=== PATIENT | female | born 1960 | race Caucasian/White ===

== ENCOUNTER 2018-07-25 11:01 | Inpatient (IN) | payer OTHER ==
--- NOTE | 2018-07-25 11:35 | C.PDOC ---
History Of Present Illness 58 y/o female pt with PMHx of breast CA referred to the ER by PMD for worsening dyspnea for x2 weeks. Dyspnea is worse on exertion. Pt currently does not have any complaints at this time. Pt denies chest pain, SOB, fever, chills and dizziness. Time Seen by Provider: 07/25/18 11:18 Chief Complaint (Nursing): Shortness Of Breath History Per: Patient History/Exam Limitations: no limitations Onset/Duration Of Symptoms: Days (x2 weeks) Exacerbating Factor(s): Exertion Past Medical History Reviewed: Historical Data, Nursing Documentation, Vital Signs Vital Signs: Last Vital Signs Temp 98.0 F 07/25/18 11:07 Pulse 88 07/25/18 11:07 Resp 16 07/25/18 11:07 BP 127/81 07/25/18 11:07 Pulse Ox 100 07/25/18 11:07 - Medical History PMH: Hypothyroidism Family History: States: No Known Family Hx - Social History Hx Alcohol Use: No Hx Substance Use: No - Immunization History Hx Tetanus Toxoid Vaccination: No Hx Influenza Vaccination: No Hx Pneumococcal Vaccination: No Review Of Systems Except As Marked, All Systems Reviewed And Found Negative. Constitutional: Negative for: Fever, Chills Cardiovascular: Negative for: Chest Pain Respiratory: Negative for: Shortness of Breath Neurological: Negative for: Dizziness Physical Exam - Physical Exam Appears: Well, Non-toxic, No Acute Distress Skin: Normal Color, Warm, Dry Head: Normacephalic Eye(s): bilateral: Normal Inspection, EOMI Nose: Normal Oral Mucosa: Moist Throat: Normal Neck: Normal ROM, Supple Chest: Symmetrical, No Deformity Cardiovascular: Rhythm Regular Respiratory: Normal Breath Sounds, No Rales, No Rhonchi, No Wheezing Gastrointestinal/Abdominal: Soft, No Tenderness Back: No CVA Tenderness Extremity: Normal ROM (x4) Neurological/Psych: Oriented x3, Normal Speech, Normal Cognition ED Course And Treatment - Laboratory Results Result Diagrams: 07/27/18 07:03 07/27/18 07:03 ECG: Interpreted By Me, Viewed By Me ECG Rhythm: Atrial Fibrillation Rate From EC O2 Sat by Pulse Oximetry: 100 (RA) Pulse Ox Interpretation: Normal Medical Decision Making Medical Decision Making: ro chf, pe, pna - labs imaigng pendign Plans: -- EKG -- chem labs -- blood work -- CXR -- UA ekg shows afib. noted anemia. pt states h/o of anemia. no active bleeidng. pe study neg. lasix dosed. pmd sukhwinder specificallyr equests to start eliquis. Disposition - Disposition Disposition: HOSPITALIZED Disposition Time: 16:00 Condition: STABLE - Clinical Impression Clinical Impression: CHF (congestive heart failure), Atrial fibrillation - Scribe Statement The provider has reviewed the documentation as recorded by the Chyna Garcia Do Provider Attestation: All medical record entries made by the Scribe were at my direction and personally dictated by me. I have reviewed the chart and agree that the record a ccurately reflects my personal performance of the history, physical exam, medical decision making, and the department course for this patient. I have also personally directed, reviewed, and agree with the discharge instructions and disposition. Decision To Admit - Pt Status Changed To: Hospital Disposition Of: Inpatient - Admit Certification Admit to Inpatient:: After my assessment, the patient will require hospitalization for at least two midnights. This is because of the severity of symptoms shown, intensity of services needed, and/or the medical risk in this patient being treated as an outpatient. - InPatient: Physician Admission Certification: I certify that this patient requires 2 or more midnights of care for the following reason:: new onset afib chf. - . Bed Request Type: Telemetry Admitting Physician: Judah Bellamy Patient Diagnosis: CHF (congestive heart failure), Atrial fibrillation
[2018-07-25 11:37] LABS: BASO % 0.7 % (0.0-2.0); EOS % 0.7 % (0.0-4.0); HEMOGLOBIN 8.4 g/dL (11.0-16.0); LYMPH # 4.3 K/uL (1.0-4.3); LYMPH % 82.1 % (20.0-40.0); MEAN CELL VOLUME 66.9 fL (81.0-99.0); MEAN PLATELET VOLUME 9.1 fL (7.2-11.7); MONO # 0.1 K/uL (0.0-0.8); MONO % 1.6 % (0.0-10.0); NEUT # 0.8 K/uL (1.8-7.0); NEUT % 14.9 % (50.0-75.0); NRBC % 0.7 % (0.0-2.0); PLATELET COUNT 183 K/uL (130-400); RBC 4.18 Mil/uL (3.80-5.20); RED CELL DISTRIBUTION WIDTH 24.9 % (11.5-14.5); WHITE BLOOD COUNT 5.2 K/uL (4.8-10.8)
[2018-07-25 11:46] LABS: ALB/GLOB RATIO 1.3 (1.0-2.1); ALBUMIN 4.8 g/dL (3.5-5.0); ALT/SGPT 15 U/L (9-52); AST/SGOT 29 U/L (14-36); BLOOD UREA NITROGEN 13 mg/dL (7-17); CALCIUM 8.9 mg/dl (8.6-10.4); GFR NON-AFRICAN AMERICAN > 60
[2018-07-25 11:57] LABS: B-TYPE NATRIURETIC PEPTIDE 1860 pg/mL (0-900)
[2018-07-25 12:01] LABS: SQUAMOUS EPITHIAL 1 /hpf (0-5); URINE BACTERIA MOD (<OCC); URINE BILIRUBIN NEGATIVE (NEGATIVE); URINE BLOOD 2+ (NEGATIVE); URINE CLARITY Clear (Clear); URINE COLOR Yellow (YELLOW); URINE GLUCOSE (UA) NORMAL (Normal); URINE HYALINE CAST 0-2 /lpf (0-2); URINE LEUKOCYTE ESTERASE NEG Leu/uL (Negative); URINE PROTEIN 1+ mg/dL (NEGATIVE)
[2018-07-25 12:25] LABS: BILIRUBIN,DIRECT 0.8 mg/dL (0.0-0.4)
[2018-07-25 12:49] LABS: INR 1.2; PROTHROMBIN TIME 13.2 SECONDS (9.7-12.2)
[2018-07-25] MEDS ORDERED: Iodixanol 320 MG/ML 100 ML BOTTLE IV ONE (13:34)
[2018-07-25 14:18] LABS: BANDS 2 % (0-2); LYMPHOCYTE 52 % (20-40); MONOCYTE 4 % (0-10); NEUTROPHIL 40 % (50-75); REACTIVE LYMPHOCYTES 2 % (0-0); TOTAL CELLS COUNTED 100
[2018-07-25 14:19] LABS: PLATELET ESTIMATE NORMAL (NORMAL)
[2018-07-25 14:22] LABS: ANISOCYTOSIS MODERATE
[2018-07-25 14:23] LABS: POIKILOCYTOSIS SLIGHT
[2018-07-25 14:24] LABS: HYPOCHROMIC SLIGHT; MICROCYTOSIS MODERATE; OVALOCYTES SLIGHT; POLYCHROMIC SLIGHT
[2018-07-25 14:25] LABS: TEARDROP CELLS SLIGHT
[2018-07-25 14:26] LABS: TARGET CELLS MARKED
--- NOTE | 2018-07-25 15:06 | RAD ---
Date of service: 07/25/2018 HISTORY: chest pain COMPARISON: None available. FINDINGS: LUNGS: Diffuse bilateral infiltrates; rule out pulmonary edema/CHF versus pneumonia PLEURA: No significant pleural effusion identified, no pneumothorax apparent. CARDIOVASCULAR: Mild aortic atherosclerotic calcification present. Cardiomegaly. No pulmonary vascular congestion. OSSEOUS STRUCTURES: No significant abnormalities. VISUALIZED UPPER ABDOMEN: Normal. OTHER FINDINGS: None. IMPRESSION: Diffuse bilateral infiltrates; rule out pulmonary edema/CHF versus pneumonia
--- NOTE | 2018-07-25 15:43 | CT ---
Date of service: 07/25/2018 PROCEDURE: CT Chest with contrast (Pulmonary Angiogram) HISTORY: cp elevated dimer COMPARISON: None available. TECHNIQUE: Axial computed tomography images were obtained of the chest in the pulmonary arterial phase of enhancement. Coronal and sagittal reformatted images were created and reviewed. Intravenous contrast dose: Radiation dose: Total exam DLP = 176.76 mGy-cm. This CT exam was performed using one or more of the following dose reduction techniques: Automated exposure control, adjustment of the mA and/or kV according to patient size, and/or use of iterative reconstruction technique. FINDINGS: PULMONARY ARTERIES: Unremarkable. No pulmonary embolism. Pulmonary trunk measures approximately AORTA: No acute findings. No thoracic aortic aneurysm. Ascending thoracic aorta measures approximate 3.7 cm. Descending thoracic aorta measures approximately 2.3 cm. Mild aortic atherosclerotic calcification or mural plaque present. LUNGS: There are patchy ground-glass opacities seen throughout the upper and lower lobes. There are minor linear scarring changes also seen in the left upper lobe extending to the pleural surface as well as in the left lung base and lingular region.. Minor linear atelectasis or scarring right lung base including middle lobe as well.. Minimal thickening of superior aspect right major fissure PLEURAL SPACES: Unremarkable. No effusion or pneumothorax. HEART: Heart is enlarged. No significant pericardial effusion. LYMPH NODES: No significant mediastinal or hilar adenopathy. Trachea midline and patent with no large central endoluminal lesions. Thickening or small amount of fluid within the superior aspect of the right major fissure. BONES, CHEST WALL: Unremarkable. No fracture or destructive lesion OTHER FINDINGS: The spleen is upper limits of normal in size. IMPRESSION: No evidence of acute central pulmonary embolus. Marked cardiomegaly. Ground-glass opacity seen throughout the upper and lower lobes with areas of linear atelectasis and or scarring left upper lobe, left lung base including the lingular region as well as right lung base and middle lobe.
[2018-07-26] MEDS: Levothyroxine 125 MCG TAB PO SCH (05:39)
--- NOTE | 2018-07-26 15:19 | CP.PCM.HP ---
History of Present Illness - History of Present Illness History of Present Illness: CC: Fatigue HPI: 58 year old female h/o Breast cancer, Anemia c/o fatigue and SOB 1 week. No chest pain, cough, fevre. Deny bleeding. Present on Admission - Present on Admission Any Indicators Present on Admission: Yes History of DVT/PE: No History of Uncontrolled Diabetes: No Urinary Catheter: No Decubitus Ulcer Present: No Review of Systems - Review of Systems Review of Systems: No fever. No cough. No loss weight. No bleeding Past Patient History - Past Medical History & Family History Past Medical History?: Yes - Past Social History Smoking Status: Never Smoked Chewing Tobacco Use: No Cigar Use: No Home Situation {Lives}: With Family Domestic Violence: Negative - CARDIAC Hx Congestive Heart Failure: Yes - PULMONARY Hx Respiratory Disorders: No - HEENT Hx HEENT Problems: No - RENAL Hx Chronic Kidney Disease: No - ENDOCRINE/METABOLIC Hx Hypothyroidism: Yes - HEMATOLOGICAL/ONCOLOGICAL Hx Cancer: Yes (BREAST. 2006) - MUSCULOSKELETAL/RHEUMATOLOGICAL Hx Musculoskeletal Disorders: No Hx Falls: No - PSYCHIATRIC Hx Substance Use: No - SURGICAL HISTORY Hx Mastectomy: Yes (LEFT, 2006) - ANESTHESIA Hx Anesthesia: Yes Hx Anesthesia Reactions: No Hx Malignant Hyperthermia: No Has any member of the family had a problem w/ anesthesia?: No Meds Allergies/Adverse Reactions: Allergies Allergy/AdvReac Type Severity Reaction Status Date / Time No Known Allergies Allergy Unverified 07/25/18 11:10 Physical Exam - Constitutional Appears: No Acute Distress - Head Exam Head Exam: NORMAL INSPECTION - Eye Exam Eye Exam: Normal appearance Pupil Exam: NORMAL ACCOMODATION - ENT Exam ENT Exam: Normal Exam - Neck Exam Neck exam: Positive for: Normal Inspection - Respiratory Exam Respiratory Exam: NORMAL BREATHING PATTERN - Cardiovascular Exam Cardiovascular Exam: Irregular Rhythm - GI/Abdominal Exam GI & Abdominal Exam: Soft - Rectal Exam Rectal Exam: Deferred - Extremities Exam Extremities exam: Positive for: normal inspection - Back Exam Back exam: NORMAL INSPECTION - Neurological Exam Neurological exam: Alert Results - Vital Signs Recent Vital Signs: Last Vital Signs Temp 98.1 F 07/26/18 07:00 Pulse 81 07/26/18 12:07 Resp 20 07/26/18 07:00 BP 109/78 07/26/18 07:00 Pulse Ox 97 07/26/18 07:00 - Labs Result Diagrams: 07/27/18 07:03 07/27/18 07:03 Assessment & Plan (1) Atrial fibrillation Status: Acute (2) Anemia Status: Chronic (3) Cardiomegaly Status: Chronic - Assessment and Plan (Free Text) Assessment: A/P: CT chest, ECHO. Cardiology and Oncology consult ordered. Continue medications - Date & Time Date: 07/26/18 Time: 15:22
[2018-07-27] MEDS: Levothyroxine 125 MCG TAB PO SCH (05:39)
[2018-07-27 07:41] LABS: HEMOGLOBIN 8.5 g/dL (11.0-16.0); MEAN CORPUSCULAR HEMOGLOBIN 19.1 pg (27.0-31.0); MEAN CORPUSCULAR HGB CONC 28.6 g/dL (33.0-37.0); RBC 4.45 Mil/uL (3.80-5.20); RED CELL DISTRIBUTION WIDTH 23.7 % (11.5-14.5); WHITE BLOOD COUNT 5.6 K/uL (4.8-10.8)
[2018-07-27 08:12] LABS: ALB/GLOB RATIO 1.3 (1.0-2.1); ALBUMIN 4.3 g/dL (3.5-5.0); ALT/SGPT 17 U/L (9-52); AST/SGOT 22 U/L (14-36); BLOOD UREA NITROGEN 19 mg/dL (7-17); CALCIUM 8.9 mg/dl (8.6-10.4); GFR NON-AFRICAN AMERICAN > 60
--- NOTE | 2018-07-27 08:17 | CP.PCM.PN ---
Subjective - Date & Time of Evaluation Date of Evaluation: 07/27/18 Time of Evaluation: 07:50 - Subjective Subjective: Pt feels well; no more CP, (+) fatigue, no cough, no SOB, no diarrhea, no N/V Objective - Vital Signs/Intake and Output Vital Signs (last 24 hours): Temp Pulse Resp BP Pulse Ox 97.9 F 73 20 109/76 98 07/27/18 08:09 07/27/18 08:09 07/27/18 08:09 07/27/18 08:09 07/27/18 08:09 Intake and Output: 07/27/18 07/27/18 06:59 18:59 Intake Total 980 Balance 980 - Medications Medications: Current Medications Apixaban (Eliquis) 5 mg PO DAILY [facility] Last Admin: 07/26/18 10:05 Dose: 5 mg Folic Acid (Folic Acid) 1 mg PO DAILY [facility] Last Admin: 07/26/18 10:05 Dose: 1 mg Levothyroxine Sodium (Synthroid) 125 mcg PO DAILY@0630 [facility] Last Admin: 07/27/18 05:39 Dose: 125 mcg - Labs Labs: 07/27/18 07:03 07/27/18 07:03 PT 13.2 SECONDS (9.7-12.2) H 07/25/18 11:28 INR 1.2 07/25/18 11:28 APTT 33 SECONDS (21-34) 07/25/18 11:28 - Constitutional Appears: No Acute Distress - Eye Exam Eye Exam: Normal appearance - ENT Exam ENT Exam: Mucous Membranes Moist - Neck Exam Neck Exam: Full ROM. absent: Lymphadenopathy, Thyromegaly - Respiratory Exam Respiratory Exam: Clear to Ausculation Bilateral. absent: Rales, Rhonchi, Wheezes - Cardiovascular Exam Cardiovascular Exam: REGULAR RHYTHM, +S1, +S2, Murmur. absent: Gallop - GI/Abdominal Exam GI & Abdominal Exam: Soft. absent: Tenderness, Mass - Extremities Exam Extremities Exam: Full ROM, Normal Capillary Refill. absent: Calf Tenderness, Joint Swelling, Pedal Edema Assessment and Plan - Assessment and Plan (Free Text) Assessment: CHF; Anemia ; h/o Breast cancer Await 2-D and von opinion Cont meds/ supportive care
[2018-07-28] MEDS: Levothyroxine 125 MCG TAB PO SCH (05:40)
--- NOTE | 2018-07-28 06:07 | CP.PCM.CON ---
History of Present Illness - History of Present Illness History of Present Illness: 58 y/o female pt with PMHx of breast CA referred to the ER by PMD for worsening dyspnea for x2 weeks. Dyspnea is worse on exertion. Pt currently does not have any complaints at this time. Pt denies chest pain, SOB, fever, chills and d izziness. Chief Complaint (Nursing): Shortness Of Breath History Per: Patient History/Exam Limitations: no limitations Onset/Duration Of Symptoms: Days (x2 weeks) Exacerbating Factor(s): Exertion - Medical History PMH: Hypothyroidism Family History: States: No Known Family Hx - Social History Hx Alcohol Use: No Hx Substance Use: No - Immunization History Hx Tetanus Toxoid Vaccination: No Hx Influenza Vaccination: No Hx Pneumococcal Vaccination: No Review Of Systems Except As Marked, All Systems Reviewed And Found Negative. Constitutional: Negative for: Fever, Chills Cardiovascular: Negative for: Chest Pain Respiratory: Negative for: Shortness of Breath Neurological: Negative for: Dizziness Physical Exam - Physical Exam Appears: Well, Non-toxic, No Acute Distress Skin: Normal Color, Warm, Dry Head: Normacephalic Eye(s): bilateral: Normal Inspection, EOMI Nose: Normal Oral Mucosa: Moist Throat: Normal Neck: Normal ROM, Supple Chest: Symmetrical, No Deformity Cardiovascular: Rhythm Regular Respiratory: Normal Breath Sounds, No Rales, No Rhonchi, No Wheezing Gastrointestinal/Abdominal: Soft, No Tenderness Back: No CVA Tenderness Extremity: Normal ROM (x4) Neurological/Psych: Oriented x3, Normal Speech, Normal Cognition Past Patient History - Past Medical History & Family History Past Medical History?: Yes - Past Social History Smoking Status: Never Smoked Chewing Tobacco Use: No Cigar Use: No Home Situation {Lives}: With Family Domestic Violence: Negative - CARDIAC Hx Congestive Heart Failure: Yes - PULMONARY Hx Respiratory Disorders: No - HEENT Hx HEENT Problems: No - RENAL Hx Chronic Kidney Disease: No - ENDOCRINE/METABOLIC Hx Hypothyroidism: Yes - HEMATOLOGICAL/ONCOLOGICAL Hx Cancer: Yes (BREAST. 2006) - MUSCULOSKELETAL/RHEUMATOLOGICAL Hx Musculoskeletal Disorders: No Hx Falls: No - PSYCHIATRIC Hx Substance Use: No - SURGICAL HISTORY Hx Mastectomy: Yes (LEFT, 2006) - ANESTHESIA Hx Anesthesia: Yes Hx Anesthesia Reactions: No Hx Malignant Hyperthermia: No Has any member of the family had a problem w/ anesthesia?: No Meds Home Medications: Home Medication List Medication Instructions Recorded Confirmed Type Apixaban [Eliquis] 2.5 mg PO BID tab 07/28/18 Rx Folic Acid 1 mg PO DAILY tab 07/28/18 Rx Levothyroxine [Synthroid] 125 mcg PO DAILY@0630 tab 07/28/18 Rx Furosemide [Lasix] 20 mg PO DAILY PRN #30 tablet 07/30/18 Rx Allergies/Adverse Reactions: Allergies Allergy/AdvReac Type Severity Reaction Status Date / Time No Known Allergies Allergy Unverified 07/25/18 11:10 - Medications Medications: Current Medications Apixaban (Eliquis) 5 mg PO DAILY [facility] Last Admin: 07/27/18 09:11 Dose: 5 mg Folic Acid (Folic Acid) 1 mg PO DAILY [facility] Last Admin: 07/27/18 09:11 Dose: 1 mg Levothyroxine Sodium (Synthroid) 125 mcg PO DAILY@0630 [facility] Last Admin: 07/28/18 05:40 Dose: 125 mcg Results - Vital Signs Recent Vital Signs: Last Vital Signs Temp 98.7 F 07/28/18 00:00 Pulse 81 07/28/18 00:00 Resp 20 07/28/18 00:00 BP 106/69 07/28/18 00:00 Pulse Ox 98 07/28/18 00:00 - Labs Result Diagrams: 07/29/18 07:20 07/29/18 07:20 Labs: Laboratory Results - last 24 hr 07/27/18 07/27/18 07:03 07:03 WBC 5.6 RBC 4.45 Hgb 8.5 L Hct 29.8 L MCV 67.0 L MCH 19.1 L MCHC 28.6 L RDW 23.7 H Plt Count 196 MPV 9.0 Differential Comment Sodium 141 Potassium 4.1 Chloride 106 Carbon Dioxide 24 Anion Gap 15 BUN 19 H Creatinine 0.7 Est GFR ( Amer) > 60 Est GFR (Non-Af Amer) > 60 Random Glucose 103 Calcium 8.9 Total Bilirubin 2.3 H AST 22 ALT 17 Alkaline Phosphatase 55 Total Protein 7.8 Albumin 4.3 Globulin 3.5 Albumin/Globulin Ratio 1.3 TSH 3rd Generation 17.30 H Assessment & Plan - Assessment and Plan (Free Text) Assessment: Dyspnea Moderate to severe MR A Fib/Dilated LA Hypothyroidism For stress test in am Liklely needs MVR in the near future
[2018-07-28] MEDS ORDERED: Caffeine Citrated **INJ** 20 MG/ML IV ONE ×2 (07:51→17:07)
--- NOTE | 2018-07-28 08:55 | CP.PCM.PN ---
Subjective - Date & Time of Evaluation Date of Evaluation: 07/28/18 Time of Evaluation: 08:35 - Subjective Subjective: Pt on stress test; no complain of CP, no SOB, no edema, no cough nor fatique Objective - Vital Signs/Intake and Output Vital Signs (last 24 hours): Temp Pulse Resp BP Pulse Ox 98.2 F 78 20 111/80 98 07/28/18 08:00 07/28/18 08:00 07/28/18 08:00 07/28/18 08:00 07/28/18 08:00 Intake and Output: 07/28/18 07/28/18 06:59 18:59 Intake Total 50 Balance 50 - Medications Medications: Current Medications Apixaban (Eliquis) 2.5 mg PO BID [facility] Folic Acid (Folic Acid) 1 mg PO DAILY [facility] Last Admin: 07/27/18 09:11 Dose: 1 mg Levothyroxine Sodium (Synthroid) 125 mcg PO DAILY@0630 [facility] Last Admin: 07/28/18 05:40 Dose: 125 mcg - Labs Labs: 07/27/18 07:03 07/27/18 07:03 PT 13.2 SECONDS (9.7-12.2) H 07/25/18 11:28 INR 1.2 07/25/18 11:28 APTT 33 SECONDS (21-34) 07/25/18 11:28 - Constitutional Appears: No Acute Distress - Eye Exam Eye Exam: Normal appearance - ENT Exam ENT Exam: Mucous Membranes Moist - Neck Exam Neck Exam: Full ROM. absent: Normal Inspection, Thyromegaly - Respiratory Exam Respiratory Exam: Clear to Ausculation Bilateral. absent: Rales, Rhonchi, Wheezes - Cardiovascular Exam Cardiovascular Exam: Irregular Rhythm, +S1, +S2, Murmur. absent: Gallop, JVD - GI/Abdominal Exam GI & Abdominal Exam: Soft. absent: Tenderness - Extremities Exam Extremities Exam: Full ROM, Normal Capillary Refill. absent: Calf Tenderness, Joint Swelling, Pedal Edema Assessment and Plan - Assessment and Plan (Free Text) Assessment: At fib; CHF; Severe MR Cont meds/ supportive care Discharge if clear by Cardio
--- NOTE | 2018-07-28 18:59 | CP.PCM.CON ---
History of Present Illness - History of Present Illness History of Present Illness: 58 yo woman with history of breast cancer, admitted with c/o SPARROW, unable to lie down flat in bed. The patient denies fever, chills, chest pain, palpitations. In the ER, she was found to be in AFib, with diffuse bilateral infiltrates The patient has a history of left sided breast cancer, T2N1, [id number]+, ER and MT negative disease, underwent mastectomy, postop chemotherapy, and chest wall radiation, 2006 in [place]. As per patient she was closely monitored during the chemo with serial 2D echo every 3 months which remained normal. The patient feels better, with improved breathing and is scheduled to have a cardiac cath tomorrow Past Patient History - Past Medical History & Family History Past Medical History?: Yes - Past Social History Smoking Status: Never Smoked Chewing Tobacco Use: No Cigar Use: No Home Situation {Lives}: With Family Domestic Violence: Negative - CARDIAC Hx Congestive Heart Failure: Yes - PULMONARY Hx Respiratory Disorders: No - HEENT Hx HEENT Problems: No - RENAL Hx Chronic Kidney Disease: No - ENDOCRINE/METABOLIC Hx Hypothyroidism: Yes - HEMATOLOGICAL/ONCOLOGICAL Hx Cancer: Yes (BREAST. 2006) - MUSCULOSKELETAL/RHEUMATOLOGICAL Hx Musculoskeletal Disorders: No Hx Falls: No - PSYCHIATRIC Hx Substance Use: No - SURGICAL HISTORY Hx Mastectomy: Yes (LEFT, 2006) - ANESTHESIA Hx Anesthesia: Yes Hx Anesthesia Reactions: No Hx Malignant Hyperthermia: No Has any member of the family had a problem w/ anesthesia?: No Meds Home Medications: Home Medication List Medication Instructions Recorded Confirmed Type Apixaban [Eliquis] 2.5 mg PO BID tab 07/28/18 Rx Folic Acid 1 mg PO DAILY tab 07/28/18 Rx Levothyroxine [Synthroid] 125 mcg PO DAILY@0630 tab 07/28/18 Rx Allergies/Adverse Reactions: Allergies Allergy/AdvReac Type Severity Reaction Status Date / Time No Known Allergies Allergy Unverified 07/25/18 11:10 - Medications Medications: Current Medications Folic Acid (Folic Acid) 1 mg PO DAILY [facility] Last Admin: 07/28/18 10:34 Dose: 1 mg Levothyroxine Sodium (Synthroid) 125 mcg PO DAILY@0630 [facility] Last Admin: 07/28/18 05:40 Dose: 125 mcg Results - Vital Signs Recent Vital Signs: Last Vital Signs Temp 98.1 F 07/28/18 16:00 Pulse 99 H 07/28/18 16:00 Resp 18 07/28/18 16:00 BP 113/76 07/28/18 16:00 Pulse Ox 99 07/28/18 16:00 - Labs Result Diagrams: 07/27/18 07:03 07/27/18 07:03 Labs: Laboratory Results - last 24 hr 07/28/18 07/28/18 08:27 08:27 Retic Count 6.4 H Lactate Dehydrogenase 469 Carcinoembryonic Ag 1.7 Assessment & Plan (1) Breast cancer in female Assessment and Plan: 58 yo woman with diagnosis of Stage II [id number] positive breast cancer, s/p chemo and RT to left chest wall in 2006, currently admitted with SOB, AFib, possibly related to the breast cancer treatments, without any other obvious preexisting risk factors for heart disease, being evaluated by cardiology. The patient has currently no evidence of recurrent breast cancer and remains in remission. The anemia is secondary to her Thalassemia, stable without any change in her Hgb level or underlying hemolysis. Continue PO folic acid for now Status: Acute
[2018-07-29] MEDS ORDERED: Midazolam 2 MG/2 ML VIAL ONE (07:03)
[2018-07-29] MEDS ORDERED: Iohexol 350mg/ml 100 ML ONE (07:25)
[2018-07-29] MEDS: Levothyroxine 125 MCG TAB PO SCH (07:27)
[2018-07-29 07:32] LABS: HEMOGLOBIN 9.9 g/dL (11.0-16.0); MEAN CELL VOLUME 66.5 fL (81.0-99.0); MEAN CORPUSCULAR HEMOGLOBIN 19.9 pg (27.0-31.0); RBC 4.97 Mil/uL (3.80-5.20); RED CELL DISTRIBUTION WIDTH 24.2 % (11.5-14.5)
[2018-07-29 07:37] LABS: BLOOD UREA NITROGEN 18 mg/dL (7-17); CALCIUM 9.5 mg/dl (8.6-10.4); GFR NON-AFRICAN AMERICAN > 60
[2018-07-29 07:45] LABS: INR 1.2; PROTHROMBIN TIME 13.1 SECONDS (9.7-12.2)
--- NOTE | 2018-07-29 08:35 | CP.PCM.PN ---
Subjective - Date & Time of Evaluation Date of Evaluation: 07/29/18 Time of Evaluation: 08:20 - Subjective Subjective: Pt no complain; Was told normal cath No CP, no SOB, no edema, no cough Wnt to go home Objective - Vital Signs/Intake and Output Vital Signs (last 24 hours): Temp Pulse Resp BP Pulse Ox 98.4 F 71 20 109/75 99 07/28/18 23:15 07/29/18 01:00 07/28/18 23:15 07/28/18 23:15 07/28/18 23:15 - Medications Medications: Current Medications Folic Acid (Folic Acid) 1 mg PO DAILY [facility] Last Admin: 07/28/18 10:34 Dose: 1 mg Levothyroxine Sodium (Synthroid) 125 mcg PO DAILY@0630 [facility] Last Admin: 07/29/18 07:27 Dose: Not Given - Labs Labs: 07/29/18 07:20 07/29/18 07:20 PT 13.1 SECONDS (9.7-12.2) H 07/29/18 07:20 INR 1.2 07/29/18 07:20 APTT 33 SECONDS (21-34) 07/25/18 11:28 - Constitutional Appears: No Acute Distress - Eye Exam Eye Exam: Normal appearance - Respiratory Exam Respiratory Exam: Clear to Ausculation Bilateral. absent: Rales, Rhonchi, Wheezes - Cardiovascular Exam Cardiovascular Exam: Irregular Rhythm, +S1, +S2, Murmur. absent: Gallop, JVD - GI/Abdominal Exam GI & Abdominal Exam: Soft. absent: Tenderness, Mass - Extremities Exam Extremities Exam: Full ROM, Normal Capillary Refill. absent: Calf Tenderness, J oint Swelling Assessment and Plan - Assessment and Plan (Free Text) Assessment: CHF; sever MR Hypothyroidism For discharge if clear w/ Cardio cont meds in OPD; F/up 08/01 in clinic
--- NOTE | 2018-07-29 10:38 | CARD ---
APPROVED REPORT Date of service: 07/28/2018 Protocol: LEXISCAN Test Type: LEXISCAN STRESS Test Indications: CHF AFIB Medications: LIST Target HR: 164 bpm Resting ECG: ATRIAL FIBRILLATION w/ low voltage in limb leads Resting Heart Rate: 90 bpm Resting Blood Pressure: 126/80mmHg submaximum (85%): 139 bpm TEST SUMMARY PREINFSNHYPERV.02:[id number]/80.0. INFUSIONDOSE 100:300.00.01.094/.0. JYEOPTCYA05:[id number]/80.0. POST EXERCISE Reason for Termination: Protocol Completed Target HR: No Max HR: 94 bpm 76% of Maximum Predicted HR: 164 bpm Exercise duration: 00:30 min:sec, 0 Stage Exercise capacity: 1.0METs Max Blood Pressure: 126/80mmHg Blood Pressure response to exercise: normal resting BP - appropriate response Heart Rate response to exercise: appropriate Chest Pain: No, none Angina index: 0 Arrhythmia: No, none from baseline ST Change: No, none Deviation: 0 mm INTERPRETATION Stress EKG Conclusion: NEGATIVE LEXISCAN STRESS TEST NORMAL BP RESPONSE TO LEXISCAN VPB'S NUCLEARB STUDIES TO BE READ SEPARATELY EXAM: Myocardial Perfusion STRESS/REST Imaging Protocol The imaging protocol used to acquire images was Stress Tc-99m/rest Tc-99m 1 day Stress Spect myocardial perfusion imaging was performed in supine position 45 minutes following the injection of 11.5 mCi of Tc-99 Myoview. Gated Rest Spect was performed 40 minutes after intravenous 29 mCi Tc-99 Myoview injection. The images were gated to evaluate regional wall motion and calculate ventricular ejection fraction.Images were reconstructed using backfilter projection method in short horizontal and verticle long axis. Spect slices were generated. RESTING DATA EDV93.08wlXB0.90L/min ESV40.00mlMyocardial Qafj640.00g Av. Heart Rate93.00bpm EF57.00% STRESS DATA EDV92.33ghJH6.50L/min ESV38.00mlMyocardial Wjdg735.00g EF59.00% Regional WT score at stress:1.00 Regional WM score at stress:0.00 Summed WT score at stress:12.00 Av. Heart Rate84.00bpmSummed WM score at stress:2.00 LV Perf. Quant 17 Seg. SSS11.00 17 Seg. SRS11.00 17 Seg. SDS0.00 Stress Defect Extent (% LAD)11.90Rest Defect Extent (% LAD)7.50Rev. Defect Extent (% LAD)1.30 Stress Defect Extent (% LCX)50.00Rest Defect Extent (% LCX)45.00Rev. Defect Extent (% LCX)2.50 Stress Defect Extent (% RCA)23.30Rest Defect Extent (% RCA)27.80Rev. Defect Extent (% RCA)0.00 Stress Defect Extent (% CAM)28.00Rest Defect Extent (% CAM)25.40Rev. Defect Extent (% CAM)2.00 Other Information Quality:Good IMPRESSION Abnormal Myocardial Perfusion exercise stress study Left Ventricle LV Function:Left ventricle systolic function is normal. The Ejection Fraction is >55%. Conclusion 1. There is moderate sized mild intensity anterior wall reversible defect suggestive of stress induced ischemia. Normal EF. Abnormal stress test.
--- NOTE | 2018-07-29 18:25 | CARD ---
APPROVED REPORT Date of service: 07/27/2018 EXAM: Two-dimensional and M-mode echocardiogram with Doppler and color Doppler. Other Information Quality : GoodRhythm : INDICATION Atrial Fibrillation Congestive Heart Failure 2D DIMENSIONS IVSd0.9 (0.7-1.1cm)LVDd4.5 (3.9-5.9cm) PWd1.0 (0.7-1.1cm)LA Bjxrcy008 (18-58mL) LVDs3.1 (2.5-4.0cm)FS (%) 32.0 % LVEF (%)55.0 (>50%)LVEF (Serna's)50.99 % M-Mode DIMENSIONS Left Atrium (MM)6.97 (2.5-4.0cm)IVSd1.03 (0.7-1.1cm) Aortic Root3.15 (2.2-3.7cm)LVDd5.05 (4.0-5.6cm) Aortic Cusp Exc.2.08 (1.5-2.0cm)PWd0.78 (0.7-1.1cm) FS (%) 31 %LVDs3.49 (2.0-3.8cm) LVEF (%)58 (>50%) Mitral Valve MV E Dhxkcgpn480.9cm/sMV E Peak Gr.25mmHgMV E Mean Gr.14mmHg MV YLP393ydL/A ratio0.0MVA (PHT)1.34cm2 EETO523.71 cm/s TDI Lateral E' Peak V4.93cm/sMedial E' Peak V4.93cm/sE/Lateral E'41.0 E/Medial E'41.0 Tricuspid Valve TR Peak Zmphcwyg304lj/sTR Peak Gr.60yvRhTBGF73jbQq LEFT VENTRICLE The left ventricle is normal size. There is normal left ventricular wall thickness. The left ventricular function is normal. The left ventricular ejection fraction is within the normal range. There is normal LV segmental wall motion. RIGHT VENTRICLE The right ventricle is normal size. ATRIA The left atrium is severely dilated. The right atrium size is normal. AORTIC VALVE The aortic valve is normal in structure. MITRAL VALVE Mitral regurgitation is moderate to severe. TRICUSPID VALVE There is mild tricuspid regurgitation. <Conclusion> Normal LV systolic function. Severely dilated LA. Moderate to severe MR. Mild TR.
[2018-07-29 19:24] LABS: CA 27.29 39 U/mL (<38)
[2018-07-30] MEDS: Levothyroxine 125 MCG TAB PO SCH (07:29)
[2018-07-30 16:13] VITALS: BP 105/67; PULSE 71; RESP 20; TEMP 98.7; O2SAT 96
--- NOTE | 2018-07-30 16:48 | CP.PCM.PN ---
Subjective - Date & Time of Evaluation Date of Evaluation: 07/30/18 Time of Evaluation: 16:48 - Subjective Subjective: Alert and orientedx3, denies sob or chest pains, NAD. Objective - Vital Signs/Intake and Output Vital Signs (last 24 hours): Temp Pulse Resp BP Pulse Ox 98.7 F 71 20 105/67 96 07/30/18 16:11 07/30/18 16:11 07/30/18 16:11 07/30/18 16:11 07/30/18 16:11 Intake and Output: 07/30/18 07/30/18 06:59 18:59 Intake Total 240 Balance 240 - Medications Medications: Current Medications Apixaban (Eliquis) 2.5 mg PO BID [facility] Last Admin: 07/30/18 10:02 Dose: 2.5 mg Folic Acid (Folic Acid) 1 mg PO DAILY [facility] Last Admin: 07/30/18 10:02 Dose: 1 mg Levothyroxine Sodium (Synthroid) 125 mcg PO DAILY@0630 [facility] Last Admin: 07/30/18 07:29 Dose: 125 mcg - Labs Labs: 07/29/18 07:20 07/29/18 07:20 PT 13.1 SECONDS (9.7-12.2) H 07/29/18 07:20 INR 1.2 07/29/18 07:20 APTT 33 SECONDS (21-34) 07/25/18 11:28 Assessment and Plan - Assessment and Plan (Free Text) Assessment: Patient s/p cardiac cath, cleared by DR Anderson, alert and oriented x3, no sob or chest pains. Discussed with DR Vincent, plan to discharge home today. Patient verbalized understanding, will follow up in the office in 1 week.
--- NOTE | 2018-08-01 22:19 | CP.PCM.PN ---
Subjective - Date & Time of Evaluation Date of Evaluation: 07/28/18 Time of Evaluation: 16:30 - Subjective Subjective: Patient seen and evaluated Abnormal stress test Exerional dyspnea Review Of Systems Except As Marked, All Systems Reviewed And Found Negative. Constitutional: Negative for: Fever, Chills Cardiovascular: Negative for: Chest Pain Respiratory: Negative for: Shortness of Breath Neurological: Negative for: Dizziness Physical Exam - Physical Exam Appears: Well, Non-toxic, No Acute Distress Skin: Normal Color, Warm, Dry Head: Normacephalic Eye(s): bilateral: Normal Inspection, EOMI Nose: Normal Oral Mucosa: Moist Throat: Normal Neck: Normal ROM, Supple Chest: Symmetrical, No Deformity Cardiovascular: Rhythm Regular Respiratory: Normal Breath Sounds, No Rales, No Rhonchi, No Wheezing Gastrointestinal/Abdominal: Soft, No Tenderness Back: No CVA Tenderness Extremity: Normal ROM (x4) Neurological/Psych: Oriented x3, Normal Speech, Normal Cognition Assessment and Plan Dyspnea Moderate to severe MR A Fib/Dilated LA Hypothyroidism Abnormal stress test For Cath in am Objective - Vital Signs/Intake and Output Vital Signs (last 24 hours): Temp Pulse Resp BP Pulse Ox 98.7 F 71 20 105/67 96 07/30/18 16:11 07/30/18 16:11 07/30/18 16:11 07/30/18 16:11 07/30/18 16:11 - Labs Labs: 07/29/18 07:20 07/29/18 07:20 PT 13.1 SECONDS (9.7-12.2) H 07/29/18 07:20 INR 1.2 07/29/18 07:20 APTT 33 SECONDS (21-34) 07/25/18 11:28
--- NOTE | 2018-08-01 22:24 | CP.PCM.PN ---
Subjective - Date & Time of Evaluation Date of Evaluation: 07/29/18 Time of Evaluation: 16:15 - Subjective Subjective: Pateint s/p Cath Normal Coronaries EF 55% Moderate to severe MR Medical management for now If symptoms persist will evaluate for MVR Objective - Vital Signs/Intake and Output Vital Signs (last 24 hours): Temp Pulse Resp BP Pulse Ox 98.7 F 71 20 105/67 96 07/30/18 16:11 07/30/18 16:11 07/30/18 16:11 07/30/18 16:11 07/30/18 16:11 - Labs Labs: 07/29/18 07:20 07/29/18 07:20 PT 13.1 SECONDS (9.7-12.2) H 07/29/18 07:20 INR 1.2 07/29/18 07:20 APTT 33 SECONDS (21-34) 07/25/18 11:28
--- NOTE | 2018-08-03 00:05 | CARDCATH ---
PROCEDURE DATE: 07/29/2018 PROCEDURES: 1. Left heart catheterization. 2. Coronary angiogram. CLINICAL INDICATIONS: 1. Abnormal stress test. 2. Exertional dyspnea. 3. Mitral valve disease. 4. Hypertension. 5. Atrial fibrillation. REFERRING PHYSICIAN: Ulysses Bellamy MD PERFORMING PHYSICIAN: Stefan Anderson MD DESCRIPTION OF PROCEDURE: After informed consent, the patient was prepped and draped in the usual sterile fashion. A 2% lidocaine was given in the right groin for local anesthesia. Using micropuncture technique, a 6-Malawian sheath was introduced into right common femoral artery. A JL4 6-Malawian diagnostic catheter was engaged in the left main coronary artery. Contrast injected, and left coronary angiogram was done. Then, the catheter was exchanged to JR4 6-Malawian diagnostic catheter. The catheter was engaged into right coronary artery. Contrast injected, and right coronary angiogram was done. Then, pigtail catheter was inserted into left ventricle. LV and diastolic pressure measured. Contrast injected, power injection. LV angiogram was done. The catheter was pulled back across the aortic valve. Gradient across the aortic valve was measured. The patient tolerated the procedure well. Postprocedure, Mynx closure device deployed in the right groin with excellent hemostasis. Radiological supervision and radiological interpretation of the coronary imaging was done. FINDINGS: 1. Left main coronary artery is patent. 2. LAD and diagonal branches are patent. 3. Left circumflex and obtuse marginal branches are patent. 4. Right coronary artery is dominant and patent. 5. LV ejection fraction is approximately 55%. EDP is 18. No gradient across the aortic valve. Moderate to severe mitral regurgitation. Dilated left atrium. IMPRESSION: 1. Abnormal cardiac catheterization as described above. 2. Patent coronaries. 3. Dwvkhxua-ge-ositvb mitral regurgitation. IMPRESSION: Medical management for mitral regurgitation for now, but if the patient's symptoms persist, recommend mitral valve replacement. Stefan Anderson MD
== END 2018-07-30 20:24 | disposition home or self-care (01) | DRG 287 ==
LOC: C.ER 11:01 → C.9E 15:42 → C.5S 17:36
PROVIDERS: ADMIT Internal Medicine; ATTEND Internal Medicine
PROC: 4A023N7 Measurement of Cardiac Sampling and Pressure, Left Heart, Percutaneous Approach (ICD-10-PCS; principal; 2018-07-29)
PROC: B2111ZZ Fluoroscopy of Multiple Coronary Arteries using Low Osmolar Contrast (ICD-10-PCS; 2018-07-29)
DX: I34.0 Nonrheumatic mitral (valve) insufficiency (principal); I50.9 Heart failure, unspecified; I48.91 Unspecified atrial fibrillation; D56.9 Thalassemia, unspecified; E03.9 Hypothyroidism, unspecified; Z85.3 Personal history of malignant neoplasm of breast; Z90.12 Acquired absence of left breast and nipple; Z92.21 Personal history of antineoplastic chemotherapy; Z79.01 Long term (current) use of anticoagulants; Z92.3 Personal history of irradiation; I11.0 Hypertensive heart disease with heart failure